=== PATIENT | female | born 1990 | race African-American/Black ===

== ENCOUNTER 2023-12-01 14:51 | Emergency (ER) | payer SELFPAY ==
[~2023-12-01] VITALS: Ht 165.1 cm; Wt 100.0 kg
[2023-12-01 15:01] VITALS: O2SAT 99
[2023-12-01] MEDS ORDERED: LIDO700A15 TP (16:58)
[2023-12-01 17:42] VITALS: BP 130/67; PULSE 79; RESP 18; TEMP 98.3
== END 2023-12-01 17:45 | disposition home or self-care (01) ==
LOC: ER 14:51
DX: S13.4XXA Sprain of ligaments of cervical spine, initial encounter (principal); G89.11 Acute pain due to trauma; V49.59XA Passenger injured in collision with other motor vehicles in traffic accident, initial encounter; Y93.89 Activity, other specified; Y92.89 Other specified places as the place of occurrence of the external cause; Y99.8 Other external cause status
CPT/HCPCS: 99281; 99283